=== PATIENT | female | born 1965 | race Caucasian/White ===

== ENCOUNTER 2018-02-15 11:21 | Emergency (ER) | payer MEDICAID, OTHER, SELFPAY ==
[2018-02-15] MEDS ORDERED: Adacel (T-DAP) 0.5 ML VIAL ONE (12:23)
[2018-02-15] MEDS ORDERED: Acetaminophen/Codeine 30-300mg Tablet ONE (12:23)
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
[2018-02-15 12:49] LABS: #Eosinphils 0.1 thou/uL (0.0-0.7); #Lymphocytes 1.1 thou/uL (1.20-3.40); #Monocytes 0.6 thou/uL (0.11-0.59); #Neutrophils 5.2 thou/uL (1.40-6.50); %Basophils 0.3 % (0.0-1.0); %Lymphocytes 15.3 % (21.0-51.0); %Neutrophils 75.4 % (42.0-75.0); Hemoglobin 13.6 g/dL (12.0-16.0); Mean Corpuscular HGB CONC 34.1 g/dL (32.0-36.0); Mean Corpuscular Hemoglobin 30.9 pg (27.0-31.0); Mean Corpuscular Volume 90.6 fL (78.0-98.0); Mean Platelet Volume 6.7 fL (7.4-10.4); Platelet Count 271 thou/uL (130-400); RBC Distribution Width 11.1 % (11.5-14.5); Red Blood Cell (RBC) Count 4.39 mill/uL (4.20-5.40); White Blood Cell (WBC) Count 6.9 thou/uL (4.8-10.8)
[2018-02-15] MEDS ORDERED: ISOVUE-370 76%-LOCM 1 ML ONE (12:56)
[2018-02-15 13:02] LABS: BHCG - Serum Negative (NEGATIVE); Pregs Control Background? CLEAR/WHITE (CLR/WHITE); Pregs Control Bar Appear? YES (CONTROL BAR)
[2018-02-15 13:05] LABS: INR-International Normal Ratio 0.9; PTT 28.9 SEC (22.9-36.1); Prothrombin Time 12.4 SEC (12.0-14.7)
[2018-02-15 13:17] LABS: ALT (SGPT) 11 U/L (8-55); AST (SGOT) 22 U/L (5-34); Alcohol Less than 10 mg/dL (Less than 10); Alkaline Phosphatase 65 U/L (40-150); Anion Gap 12 mmol/L (10-20); BUN (Urea Nitrogen) 18 mg/dL (9.8-20.1); Bilirubin, Total 0.6 mg/dL (0.2-1.2); Calc. Creatinine Clearance 0 mL/min (70-130); Calcium 9.1 mg/dL (7.8-10.44); Carbon Dioxide 25 mmol/L (22-29); Chloride 107 mmol/L (98-107); Estimated GFR-MDRD Greater than 90; Globulin 2.7 g/dL (2.4-3.5); Glucose 106 mg/dL (70-105); Lipase 16 U/L (8-78); Potassium 3.7 mmol/L (3.5-5.1); Protein, Total 6.7 g/dL (6.0-8.3); Sodium 140 mmol/L (136-145)
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
[2018-02-15 14:30] LABS: Bilirubin Negative (Negative); Blood, Urine Moderate (Negative); Clarity CLOUDY (Clear); Glucose, Urine (Dipstick) Negative (Negative); Leukocyte Small (Negative); Nitrite Positive (Negative); Protein, Urine (Dipstick) Negative (Neg-Trace); Specific Gravity, Urine 1.018 (1.002-1.036)
[2018-02-15 14:35] LABS: Bacteria/HPF 4+ HPF (None Seen); Hyaline Casts/LPF 0-3 HYALINE CAST LPF (0-3 Hyaline); RBC/HPF 21-50 HPF (0-3); Squamous Epithelial 0-3 HPF (0-3)
== END 2018-02-15 14:52 | disposition home or self-care (01) ==
LOC: ERS 11:21
DX: S30.810A Abrasion of lower back and pelvis, initial encounter (principal); S20.412A Abrasion of left back wall of thorax, initial encounter; G43.909 Migraine, unspecified, not intractable, without status migrainosus; J44.9 Chronic obstructive pulmonary disease, unspecified; F43.10 Post-traumatic stress disorder, unspecified; F41.9 Anxiety disorder, unspecified; F31.9 Bipolar disorder, unspecified; F17.210 Nicotine dependence, cigarettes, uncomplicated; Z79.899 Other long term (current) drug therapy; Y04.0XXA Assault by unarmed brawl or fight, initial encounter
CPT/HCPCS: 36415; 70450; 71260; 72125; 74177; 80053; 80307; 81003; 81015; 83605; 83690; 84703; 85025; 85610; 85730; 90471; 90715

== ENCOUNTER 2018-08-23 22:06 | Emergency (ER) | payer MEDICAID, OTHER ==
[~2018-08-23 22:06] MED LIST: ISOVUE-370 76%-LOCM 1 ML ONE
[2018-08-23 22:39] LABS: #Basophils 0.1 thou/uL (0.0-0.2); #Eosinphils 0.1 thou/uL (0.0-0.7); #Lymphocytes 1.6 thou/uL (1.20-3.40); #Monocytes 0.4 thou/uL (0.11-0.59); #Neutrophils 3.4 thou/uL (1.40-6.50); %Basophils 1.5 % (0.0-1.0); %Eosinophils 1.1 % (0.0-10.0); %Lymphocytes 28.6 % (21.0-51.0); %Monocytes 7.6 % (0.0-10.0); %Neutrophils 61.3 % (42.0-75.0); Hemoglobin 12.9 g/dL (12.0-16.0); Mean Corpuscular HGB CONC 33.1 g/dL (32.0-36.0); Mean Corpuscular Hemoglobin 31.3 pg (27.0-31.0); Mean Corpuscular Volume 94.6 fL (78.0-98.0); Mean Platelet Volume 6.5 fL (7.4-10.4); Platelet Count 268 thou/uL (130-400); RBC Distribution Width 11.7 % (11.5-14.5); White Blood Cell (WBC) Count 5.6 thou/uL (4.8-10.8)
[2018-08-23] MEDS ORDERED: Ondansetron PF 4 MG/2 ML Vial ONE (22:49)
[2018-08-23] MEDS ORDERED: Ketorolac Tromethamine 30 MG/ML VIAL ONE (22:49)
[2018-08-23 22:56] LABS: Bilirubin Negative (Negative); Blood, Urine Trace (Negative); Clarity CLEAR (Clear); Glucose, Urine (Dipstick) Negative (Negative); Leukocyte Negative (Negative); Nitrite Negative (Negative); Protein, Urine (Dipstick) Negative (Neg-Trace); Specific Gravity, Urine 1.009 (1.002-1.036); Urobilinogen 0.2 mg/dL (0.2-1.0)
[2018-08-23 22:57] LABS: Bacteria/HPF None Seen HPF (None Seen); Hyaline Casts/LPF 0-3 HYALINE CAST LPF (0-3 Hyaline); RBC/HPF 0-3 HPF (0-3); Squamous Epithelial 0-3 HPF (0-3); WBC/HPF None Seen HPF (0-3)
[2018-08-23 22:59] LABS: ALT (SGPT) 15 U/L (8-55); AST (SGOT) 17 U/L (5-34); Albumin 3.9 g/dL (3.5-5.0); Alkaline Phosphatase 74 U/L (40-150); Anion Gap 14 mmol/L (10-20); BUN (Urea Nitrogen) 16 mg/dL (9.8-20.1); Bilirubin, Total Less than 0.2 mg/dL (0.2-1.2); Calc. Creatinine Clearance 0 mL/min (70-130); Calcium 8.8 mg/dL (7.8-10.44); Carbon Dioxide 23 mmol/L (22-29); Chloride 109 mmol/L (98-107); Estimated GFR-MDRD Greater than 90; Globulin 2.4 g/dL (2.4-3.5); Glucose 123 mg/dL (70-105); Potassium 3.7 mmol/L (3.5-5.1); Protein, Total 6.3 g/dL (6.0-8.3); Sodium 142 mmol/L (136-145)
--- NOTE | 2018-08-23 23:08 | CT ---
CT ABDOMEN AND PELVIS: 08/23/2018 HISTORY: Abdominal pain and nausea. COMPARISON: 02/15/2018 TECHNIQUE: Axial CT imaging obtained at 5 mm intervals, from the lung bases through the pubic symphysis, with IV contrast. Coronal reformatted imaging obtained. FINDINGS: Midline sternotomy wires are present. The imaged lung bases demonstrate no acute findings. No free intraperitoneal air. There is a hypodense lesion in the left lobe of the liver, measuring 8-9 mm in AP dimension, unchange d when compared to the prior exam, too small to characterize. The gallbladder is decompressed. Nons pecific intrahepatic biliary dilatation is noted, left greater than right, stable when compared to th e prior exam. In addition, the common bile duct is dilated, measuring 1.2 cm in transverse dimension , also stable. The spleen, adrenal glands, and kidneys demonstrate no acute findings. No discrete p ancreatic mass lesion identified. Evaluation of the bowel is limited without oral contrast media. The appendix appears grossly unremarkable. No evidence for bowel or inflammatory change or obstructi on. Scattered atherosclerotic calcification of the abdominal aorta noted. Review of the osseous structures demonstrates no worrisome lytic or blastic bone lesion. There is mass-like enlargement of the uterine fundus, similar when compared to studies dating back to 02/25/2012. IMPRESSION: Stable nonspecific intrahepatic and extrahepatic biliary dilatation. Findings suggest a nonspecific biliary obstructive process. Correlation with laboratory analysis and consideration for follow-up ma gnetic resonance cholangiopancreatography or endoscope retrograde cholangiopancreatography advised. CODE T POS: [facility]
== END 2018-08-23 23:57 | disposition home or self-care (01) ==
LOC: ERS 22:06
DX: M54.5 Low back pain (principal); G43.909 Migraine, unspecified, not intractable, without status migrainosus; J44.9 Chronic obstructive pulmonary disease, unspecified; F17.210 Nicotine dependence, cigarettes, uncomplicated; F31.9 Bipolar disorder, unspecified; F41.9 Anxiety disorder, unspecified; F43.10 Post-traumatic stress disorder, unspecified; Z79.899 Other long term (current) drug therapy
CPT/HCPCS: 74177; 80053; 81003; 81015; 82274; 83605; 85025; 96361; 96372; 96374; 96375; J1885; J2405

== ENCOUNTER 2019-02-10 15:33 | Observation (INO) | payer OTHER ==
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
[2019-02-10] MEDS ORDERED: Ondansetron ODT 4 MG TAB ONE ×2 (18:09→18:12)
[2019-02-10] MEDS ORDERED: HYDROcodone/Acetaminophen 5/325 mg Tablet ONE (18:37)
[2019-02-10 18:49] LABS: #Eosinphils 0.1 thou/uL (0.0-0.7); #Lymphocytes 1.9 thou/uL (1.20-3.40); #Monocytes 0.6 thou/uL (0.11-0.59); #Neutrophils 4.9 thou/uL (1.40-6.50); %Basophils 0.4 % (0.0-1.0); %Eosinophils 1.3 % (0.0-10.0); %Lymphocytes 25.1 % (21.0-51.0); %Monocytes 8.1 % (0.0-10.0); %Neutrophils 65.1 % (42.0-75.0); Mean Corpuscular HGB CONC 32.7 g/dL (32.0-36.0); Mean Corpuscular Hemoglobin 29.8 pg (27.0-31.0); Mean Platelet Volume 7.1 fL (7.4-10.4); Platelet Count 247 thou/uL (130-400); RBC Distribution Width 11.3 % (11.5-14.5); Red Blood Cell (RBC) Count 4.35 mill/uL (4.20-5.40); White Blood Cell (WBC) Count 7.5 thou/uL (4.8-10.8)
[2019-02-10 19:18] LABS: ALT (SGPT) 10 U/L (8-55); AST (SGOT) 16 U/L (5-34); Albumin 3.8 g/dL (3.5-5.0); Alkaline Phosphatase 70 U/L (40-150); Anion Gap 10 mmol/L (10-20); BUN (Urea Nitrogen) 17 mg/dL (9.8-20.1); Bilirubin, Total Less than 0.2 mg/dL (0.2-1.2); Calc. Creatinine Clearance 0 mL/min (70-130); Calcium 8.6 mg/dL (7.8-10.44); Carbon Dioxide 25 mmol/L (22-29); Chloride 104 mmol/L (98-107); Estimated GFR-MDRD Greater than 90; Globulin 2.6 g/dL (2.4-3.5); Glucose 94 mg/dL (70-105); Potassium 3.4 mmol/L (3.5-5.1); Protein, Total 6.4 g/dL (6.0-8.3); Sodium 136 mmol/L (136-145)
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
[2019-02-10 21:34] VITALS: BMI 18.3
[2019-02-10] MEDS ORDERED: Senokot S 8.6-50 MG TAB PO PRN (21:44)
[2019-02-10] MEDS ORDERED: Ondansetron ODT 4 MG TAB PO PRN ×2 (21:44→23:21)
[2019-02-10] MEDS ORDERED: Acetaminophen 325 MG TAB PO PRN (21:44)
[2019-02-10] MEDS ORDERED: Calcium Carbonate 500 MG ChewTAB PO PRN (21:44)
[2019-02-10] MEDS: Piperacillin/Tazobactam 3.375 GM in Sodium Chloride 0.9% 100 ML IVPB SCH (22:42)
[2019-02-10] MEDS: Morphine 4 MG/ML VIAL SLOW IVP PRN (22:50)
[2019-02-10] MEDS ORDERED: Ibuprofen 600 MG TAB PO PRN (23:21)
[2019-02-10] MEDS ORDERED: Nicotine 7 MG PATCH TD SCH (23:59)
[2019-02-11] MEDS: Morphine 4 MG/ML VIAL SLOW IVP PRN ×4 (02:51→15:25)
[2019-02-11] MEDS: Piperacillin/Tazobactam 3.375 GM in Sodium Chloride 0.9% 100 ML IVPB SCH ×3 (04:31→17:35)
[2019-02-11] MEDS: Vancomycin HCl 1 GM in Premix Bag 1 BAG IVPB SCH ×2 (05:34→18:41)
[2019-02-11 05:55] LABS: #Eosinphils 0.1 thou/uL (0.0-0.7); #Lymphocytes 1.7 thou/uL (1.20-3.40); #Monocytes 0.6 thou/uL (0.11-0.59); #Neutrophils 4.3 thou/uL (1.40-6.50); %Basophils 0.4 % (0.0-1.0); %Eosinophils 1.6 % (0.0-10.0); %Lymphocytes 24.8 % (21.0-51.0); %Monocytes 9.1 % (0.0-10.0); Hemoglobin 12.5 g/dL (12.0-16.0); Mean Corpuscular HGB CONC 31.8 g/dL (32.0-36.0); Mean Corpuscular Hemoglobin 29.4 pg (27.0-31.0); Mean Corpuscular Volume 92.5 fL (78.0-98.0); Mean Platelet Volume 7.2 fL (7.4-10.4); Platelet Count 222 thou/uL (130-400); RBC Distribution Width 11.4 % (11.5-14.5); Red Blood Cell (RBC) Count 4.24 mill/uL (4.20-5.40); White Blood Cell (WBC) Count 6.8 thou/uL (4.8-10.8)
[2019-02-11 06:20] LABS: ALT (SGPT) 9 U/L (8-55); AST (SGOT) 14 U/L (5-34); Albumin 3.3 g/dL (3.5-5.0); Alkaline Phosphatase 63 U/L (40-150); Anion Gap 10 mmol/L (10-20); BUN (Urea Nitrogen) 14 mg/dL (9.8-20.1); Bilirubin, Total 0.2 mg/dL (0.2-1.2); Calc. Creatinine Clearance 99 mL/min (70-130); Calcium 8.2 mg/dL (7.8-10.44); Carbon Dioxide 24 mmol/L (22-29); Chloride 107 mmol/L (98-107); Estimated GFR-MDRD Greater than 90; Globulin 2.4 g/dL (2.4-3.5); Glucose 99 mg/dL (70-105); Potassium 3.9 mmol/L (3.5-5.1); Protein, Total 5.7 g/dL (6.0-8.3); Sodium 137 mmol/L (136-145)
[2019-02-11] MEDS ORDERED: Mometasone/Formoterol 120 PUFF INHALER INH SCH (06:30)
[2019-02-11] MEDS ORDERED: Ipratropium Bromide 2.5 ml Neb NEB SCH (06:30)
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
[2019-02-11] MEDS: Dicyclomine 20 MG TAB PO SCH ×3 (07:41→17:25)
--- NOTE | 2019-02-11 08:47 | CON ---
DATE OF CONSULTATION: DICTATED FOR: William Cage MD. HISTORY OF PRESENT ILLNESS: We were asked by [facility] to see the patient. The patient few weeks ago, cut her left index finger knuckle and did okay with self treatment for the first couple of weeks, but then a piece of aluminum or something heavy landed on it, and the symptoms got worse. She is not able to raise her finger up, and she has some pain over the knuckle. Dr. Cage looked at it last night and did not think it needed to be I and D, but definitely for infectious purposes, it does need to be cleared up before any surgical intervention needs to be undertaken. She will probably need that extensor tendon fixed and appropriately it should be done by hand surgeon. I spoke with the patient. I went over with Dr. Cage that last night, she understands. I think, reasonably she could go home on some dicloxacillin for a few weeks and then follow up with Hand Surgery. PAST MEDICAL HISTORY: Positive for neuropathy, seizure disorder, COPD, multiple miscarriages, some Tourette's, PTSD, anxiety, panic attacks, and bipolar. PAST SURGICAL HISTORY: ASD repair, bilateral knee, colon surgery, two D and Cs, elective , and tubal ligation. FAMILY HISTORY: Not contributory to this particular visit. SOCIAL HISTORY: Smokes for many years. Used alcohol in the past, so uses some illicit drugs. REVIEW OF SYSTEMS: Her current only complaint is that left knuckle pain. Otherwise, denies any chest pain, shortness of breath, bowel or bladder issues. Rest of review of systems negative. PHYSICAL EXAMINATION: GENERAL: Well-nourished female, resting in bed in room 4429 in no acute distress. Speech clear. Affect pleasant. Answers questions appropriately. She is alert and oriented x3. HEENT: Normal exam. Face symmetric. Tongue midline. Missing some teeth. NECK: Supple. Trachea midline. EXTREMITIES: Upper extremities, equal size, shape, symmetry. Normal bulk and tone with the exception of the left hand, which does have some inflammation over the left index knuckle area. It is mildly erythematous and with some mild warmth, but she is able to flex it okay, but she is unable to extend it. She has good sensations right now, but states there is a sensation of some numbness. ASSESSMENT: Wound to left knuckle. PLAN: It does appear to be inflamed and possible mild infection. She does have extensor tendon injury. Infection will need to be cleared up before any surgical intervention. Our thought is that she needs to see our hand surgeon after antibiotics in a few weeks to see if this could be repaired in a timely manner. The patient understands the plan. She is happy with it. she can eat right now. I have changed her diet in the computer and taken her n.p.o. status off. Job ID: [id number]
[2019-02-11] MEDS ORDERED: Non-Formulary Item 1 EACH (Budesonide-Formoterol [Symbicort 80-4.5] 2 PUFF) INH SCH (09:00)
[2019-02-11] MEDS ORDERED: Nicotine 7 MG PATCH TD SCH (09:00)
[2019-02-11] MEDS ORDERED: Vancomycin HCl 1 GM in Sodium Chloride 0.9% 250 ML 250 ML IVPB SCH (09:00)
[2019-02-11] MEDS ORDERED: Gabapentin 300 MG CAP PO SCH (09:00)
[2019-02-11] MEDS: Ketorolac Tromethamine 30 MG/ML VIAL IVP PRN ×2 (10:30→18:42)
[2019-02-11] MEDS: Methocarbamol 500 MG TAB PO PRN ×2 (10:30→18:43)
[2019-02-11 13:15] VITALS: BP 117/86; TEMP 98.1
--- NOTE | 2019-02-13 04:51 | DIS ---
DATE OF ADMISSION: 02/10/2019 DATE OF DISCHARGE: 02/11/2019 RESIDENT: Bouchra Kim DO ADMITTING PHYSICIAN: Jalen Sidhu MD DISCHARGE ATTENDING: Bo Quick MD. CONSULTS: 1. Ortho Surgery. 2. Hand Surgery. PROCEDURES: None. DIAGNOSES: 1. Hand cellulitis, extensor tendon tenosynovitis ruled out. 2. Extensor tendon laceration. 3. Chronic obstructive pulmonary disease. 4. Easy bruising. 5. Neuropathy. 6. Post-traumatic stress disorder. 7. Tobacco use disorder. 8. Polysubstance abuse disorder. 9. History of alcoholism. 10. History of seizures. 11. Anxiety. 12. Tourette syndrome. HISTORY OF PRESENT ILLNESS/HOSPITAL COURSE: Ms. Corrigan came to the emergency department because of pain of her left hand after scrapping metal previously that day. She felt as if a piece of metal might have fallen into the wound that occurred about 2 weeks ago over of her left metacarpophalangeal joint while sharpening a knife. She began to have severe pain in this left finger that is radiating up the arm, it became more swollen and red, which seemed to worsen throughout the evening. Dr. Cage, Ortho Surgery, was consulted who recommended that we start the patient on p.o. dicloxacillin. The patient to follow up with Hand Surgery in about 2 weeks ' time once the cellulitis is treated. Ortho stated that no intervention was necessary at this time, it is likely just overlying cellulitis and not true tenosynovitis. Decision for surgery will be decided upon at the followup appointment. The patient improved the next day after being on IV vanc, IV Zosyn and IV pain medications. She states that she was ready to go home and believes she would do fine taking the antibiotics, Ibuprofen, and Tylenol. DISPOSITION: Stable, will follow up out patient with hand surgery. DISCHARGE INSTRUCTIONS: 1. Location: To home. 2. Diet: Regular diet. 3. Activity: Ad-hazel or as tolerated. 4. Followup: Follow up with Hand Surgery in 2 week's time. Job ID: [id number] MTDD
== END 2019-02-11 19:19 | disposition home or self-care (01) ==
LOC: ERS 15:33 → T4-B 21:30
PROVIDERS: ADMIT Family Medicine; ATTEND Family Medicine
DX: L03.114 Cellulitis of left upper limb (principal); S66.321A Laceration of extensor muscle, fascia and tendon of left index finger at wrist and hand level, initial encounter; J44.9 Chronic obstructive pulmonary disease, unspecified; R23.3 Spontaneous ecchymoses; G62.9 Polyneuropathy, unspecified; F43.10 Post-traumatic stress disorder, unspecified; F17.210 Nicotine dependence, cigarettes, uncomplicated; F19.10 Other psychoactive substance abuse, uncomplicated; F10.21 Alcohol dependence, in remission; G40.909 Epilepsy, unspecified, not intractable, without status epilepticus; F41.0 Panic disorder [episodic paroxysmal anxiety]; F95.2 Tourette's disorder; F31.9 Bipolar disorder, unspecified; Z87.59 Personal history of other complications of pregnancy, childbirth and the puerperium; Z88.5 Allergy status to narcotic agent; Z88.8 Allergy status to other drugs, medicaments and biological substances; Z79.899 Other long term (current) drug therapy; W26.0XXA Contact with knife, initial encounter
CPT/HCPCS: 36415; 80053; 85025; 85652; 86140; 87040; 87070; 87077; 87186; 87205; 94640; 96365; 96366; 96367; 96375; 96376; G0378; J1885; J2270; J2543; J3370; J3490; Q0162

== ENCOUNTER 2019-05-08 21:18 | Emergency (ER) | payer OTHER | END 2019-05-08 23:44 | disposition home or self-care (01) | LOC: ERS 21:18 | DX: F10.20 Alcohol dependence, uncomplicated (principal); J44.9 Chronic obstructive pulmonary disease, unspecified; F43.10 Post-traumatic stress disorder, unspecified; F31.9 Bipolar disorder, unspecified; F17.210 Nicotine dependence, cigarettes, uncomplicated | CPT/HCPCS: 99284 ==

== ENCOUNTER 2019-05-13 13:18 | Emergency (ER) | payer OTHER ==
--- NOTE | 2019-05-13 14:13 | CT ---
CT head noncontrast HISTORY: Head injury. COMPARISON: 02/15/2018. FINDINGS: There is no evidence of acute intracranial hemorrhage or infarct. The ventricles appear nor mal in size, shape and position. There is no mass effect or shift of midline structures. Visualized paranasal sinuses remain well-aerated. IMPRESSION: No acute intracranial abnormalities are demonstrated.
[2019-05-13] MEDS ORDERED: Ketorolac Tromethamine 60 MG/2 ML VIAL ONE (14:26)
--- NOTE | 2019-05-13 14:26 | RAD ---
Radiograph right humerus 2 views: DATE: 05/13/2019 HISTORY: 54-year-old female with traumatic arm pain from fall FINDINGS: There is no fracture. IMPRESSION: Negative
--- NOTE | 2019-05-13 14:27 | RAD ---
Radiograph right shoulder 3 views: HISTORY: 54-year-old female status post acute trauma due to fall FINDINGS: No fracture or dislocation. IMPRESSION: No evidence of acute traumatic injury.
== END 2019-05-13 14:50 | disposition home or self-care (01) ==
LOC: SCSER 13:18
DX: S43.401A Unspecified sprain of right shoulder joint, initial encounter (principal); S00.93XA Contusion of unspecified part of head, initial encounter; J44.9 Chronic obstructive pulmonary disease, unspecified; F43.10 Post-traumatic stress disorder, unspecified; F31.9 Bipolar disorder, unspecified; F17.210 Nicotine dependence, cigarettes, uncomplicated; W19.XXXA Unspecified fall, initial encounter
CPT/HCPCS: 70450; 96372; J1885

== ENCOUNTER 2020-02-09 16:27 | Outpatient (CLI) | payer OTHER ==
--- NOTE | 2020-02-09 16:55 | RAD ---
Right foot 3 views HISTORY: Injury. FINDINGS: Lisfranc joint alignment is anatomic. Plantar arch is maintained. Joint space narrowing and osteophytosis are most pronounced at the first metatarsophalangeal joint. M ild osteophytosis. Left cheek prominent OsteoArthritic changes are present elsewhere throughout the foot. No acute fracture, dislocation, or aggressive osseous erosions. 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
--- NOTE | 2020-02-09 16:59 | RAD ---
Left wrist 3 views HISTORY: Injury. Pain. FINDINGS: Each view demonstrates an oblique lucency through the articular surface of the distal radiu s at the level of the scapholunate junction. Approximately 0.3 cm gap on the oblique view. No significant step-off. Distal ulna is intact. Partial union of the lunate and triquetrum is apparent. Mild osteoarthritic changes of the first carpometacarpal joint. IMPRESSION : Intra-articular fracture distal right radius. Please consider immobilization and urgent orthopedic ev aluation
--- NOTE | 2020-02-09 17:19 | RAD ---
EXAM: SACRUM AND COCCYX THREE VIEWS: 02/09/20 HISTORY: Injury from a fall with pain. FINDINGS: Minimal arthrosis changes of the SI joints bilaterally. No evidence for overt fracture. IMPRESSION: No convincing evidence for acute sacral or coccygeal fracture. Minimal generalized arthrosis and dege nerative change. If the patient has persistent or worsening pain referable to the sacrum and coccyx, consider follow-u p nonemergent MRI which may well demonstrate subtle insufficiency or stress type fractures of the sa chalo and coccyx which may not be evident on plain film or even CT. POS: [facility]
== END 2020-02-09 16:28 | disposition home or self-care (01) ==
LOC: BICRAD 16:27
PROVIDERS: ATTEND Family Medicine
DX: S89.92XA Unspecified injury of left lower leg, initial encounter (principal); S99.921A Unspecified injury of right foot, initial encounter; S30.0XXA Contusion of lower back and pelvis, initial encounter; W19.XXXA Unspecified fall, initial encounter; M47.818 Spondylosis without myelopathy or radiculopathy, sacral and sacrococcygeal region; S52.502A Unspecified fracture of the lower end of left radius, initial encounter for closed fracture; M18.11 Unilateral primary osteoarthritis of first carpometacarpal joint, right hand
CPT/HCPCS: 72220

== ENCOUNTER 2021-04-25 14:42 | Emergency (ER) | payer OTHER ==
[2021-04-25 15:39] LABS: #Basophils 0.1 thou/uL (0.0-0.2); #Eosinphils 0.1 thou/uL (0.0-0.7); #Lymphocytes 1.8 thou/uL (1.20-3.40); #Monocytes 0.4 thou/uL (0.11-0.59); #Neutrophils 1.7 thou/uL (1.40-6.50); %Basophils 1.4 % (0.0-1.0); %Eosinophils 3.2 % (0.0-10.0); %Lymphocytes 42.6 % (21.0-51.0); %Monocytes 10.3 % (0.0-10.0); %Neutrophils 42.5 % (42.0-75.0); Hemoglobin 12.5 g/dL (12.0-16.0); Mean Corpuscular HGB CONC 32.1 g/dL (32.0-36.0); Mean Corpuscular Hemoglobin 29.2 pg (27.0-31.0); Mean Corpuscular Volume 91.1 fL (78.0-98.0); Mean Platelet Volume 7.1 fL (7.4-10.4); Platelet Count 215 thou/uL (130-400); RBC Distribution Width 11.8 % (11.5-14.5); Red Blood Cell (RBC) Count 4.28 mill/uL (4.20-5.40); White Blood Cell (WBC) Count 4.1 thou/uL (4.8-10.8)
[2021-04-25 16:01] LABS: ALT (SGPT) 23 U/L (8-55); AST (SGOT) 32 U/L (5-34); Albumin 3.7 g/dL (3.5-5.0); Alkaline Phosphatase 82 U/L (40-110); Anion Gap 11 mmol/L (10-20); BUN (Urea Nitrogen) 17 mg/dL (9.8-20.1); Bilirubin, Total Less than 0.2 mg/dL (0.2-1.2); Calc. Creatinine Clearance 0 mL/min (70-130); Calcium 8.9 mg/dL (7.8-10.44); Carbon Dioxide 29 mmol/L (22-29); Chloride 101 mmol/L (98-107); Globulin 2.6 g/dL (2.4-3.5); Glucose 113 mg/dL (70-105); Lipase 25 U/L (8-78); Protein, Total 6.3 g/dL (6.0-8.3); Sodium 137 mmol/L (136-145)
[2021-04-25] MEDS ORDERED: Morphine 4 MG/ML VIAL ONE (16:22)
[2021-04-25] MEDS ORDERED: Acetaminophen 500 MG TAB ONE (16:23)
[2021-04-25] MEDS ORDERED: Ondansetron PF 4 MG/2 ML Vial ONE (16:23)
[2021-04-25] MEDS ORDERED: Ondansetron ODT 4 MG TAB ONE (16:39)
== END 2021-04-25 17:00 | disposition home or self-care (01) ==
LOC: ERS 14:42
DX: R10.32 Left lower quadrant pain (principal); J44.9 Chronic obstructive pulmonary disease, unspecified; F17.210 Nicotine dependence, cigarettes, uncomplicated; Z87.442 Personal history of urinary calculi; Z79.899 Other long term (current) drug therapy
CPT/HCPCS: 36415; 74176; 80053; 83690; 85025; 96372; J2270; J2405; Q0162

== ENCOUNTER 2021-04-30 21:06 | Emergency (ER) | payer OTHER ==
[2021-04-30 21:43] LABS: #Eosinphils 0.1 thou/uL (0.0-0.7); #Lymphocytes 1.9 thou/uL (1.20-3.40); #Monocytes 0.4 thou/uL (0.11-0.59); %Basophils 0.3 % (0.0-1.0); %Eosinophils 1.8 % (0.0-10.0); %Lymphocytes 35.2 % (21.0-51.0); %Monocytes 7.6 % (0.0-10.0); %Neutrophils 55.1 % (42.0-75.0); Hemoglobin 12.6 g/dL (12.0-16.0); Mean Corpuscular HGB CONC 32.1 g/dL (32.0-36.0); Mean Corpuscular Hemoglobin 29.4 pg (27.0-31.0); Mean Corpuscular Volume 91.5 fL (78.0-98.0); Platelet Count 237 thou/uL (130-400); RBC Distribution Width 11.5 % (11.5-14.5); Red Blood Cell (RBC) Count 4.28 mill/uL (4.20-5.40); White Blood Cell (WBC) Count 5.4 thou/uL (4.8-10.8)
[2021-04-30 21:53] LABS: Bilirubin Negative (Negative); Blood, Urine 2+ (Negative); Calcium Oxalate Crystals 4+ HPF (None Seen); Glucose, Urine (Dipstick) Normal (Negative); Ketone, Urine Trace mg/dL (Negative); Leukocyte 250 Leu/uL (Negative); Nitrite Negative (Negative); Protein, Urine (Dipstick) 50 mg/dL (Neg-Trace); RBC/HPF 21-50 HPF (0-3); Specific Gravity, Urine 1.038 (1.002-1.036)
[2021-04-30 21:54] LABS: Bacteria/HPF Rare-Few HPF (None Seen); Clarity Cloudy (Clear)
[2021-04-30 21:59] LABS: Anion Gap 11 mmol/L (10-20); BUN (Urea Nitrogen) 19 mg/dL (9.8-20.1); Calc. Creatinine Clearance 0 mL/min (70-130); Carbon Dioxide 32 mmol/L (22-29); Chloride 103 mmol/L (98-107); Glucose 99 mg/dL (70-105); Potassium 3.5 mmol/L (3.5-5.1); Sodium 142 mmol/L (136-145)
[2021-04-30] MEDS ORDERED: Ketorolac Tromethamine 30 MG/ML VIAL ONE (22:32)
== END 2021-04-30 23:17 | disposition home or self-care (01) ==
LOC: ERS 21:06
DX: N30.90 Cystitis, unspecified without hematuria (principal); D72.829 Elevated white blood cell count, unspecified; J44.9 Chronic obstructive pulmonary disease, unspecified; F17.210 Nicotine dependence, cigarettes, uncomplicated; Z79.899 Other long term (current) drug therapy
CPT/HCPCS: 36415; 74176; 80048; 81003; 81015; 85025; 96372; J1885

== ENCOUNTER 2021-07-23 14:18 | Outpatient (CLI) | payer OTHER | END 2021-07-23 14:19 | disposition home or self-care (01) | LOC: MRI 14:18 | PROVIDERS: ATTEND Student in an Organized Health Care Education/Training Program | DX: R60.0 Localized edema (principal); M25.462 Effusion, left knee; S83.242A Other tear of medial meniscus, current injury, left knee, initial encounter; M24.19 Other articular cartilage disorders, other specified site | CPT/HCPCS: 93970 ==

== ENCOUNTER 2021-08-21 12:45 | Emergency (ER) | payer OTHER ==
[2021-08-21 23:50] LABS: SARS-CoV-2 PCR by NAA Not Detected (NotDetected)
== END 2021-08-21 14:00 | disposition home or self-care (01) ==
LOC: ERS 12:45
DX: R51.9 Headache, unspecified (principal); R09.81 Nasal congestion; Z20.822 Contact with and (suspected) exposure to COVID-19; J44.9 Chronic obstructive pulmonary disease, unspecified; F17.210 Nicotine dependence, cigarettes, uncomplicated
CPT/HCPCS: 99284; U0003; U0005

== ENCOUNTER 2021-11-21 13:51 | Outpatient (CLI) | payer OTHER | END 2021-11-21 13:52 | disposition home or self-care (01) | LOC: BICRAD 13:51 | PROVIDERS: ATTEND Nurse Practitioner Family | DX: M54.50 Low back pain, unspecified (principal) | CPT/HCPCS: 72100 ==

== ENCOUNTER 2022-05-20 14:09 | Emergency (ER) | payer OTHER ==
[2022-05-20 15:07] LABS: #Lymphocytes 1.3 thou/uL (1.20-3.40); #Monocytes 0.4 thou/uL (0.11-0.59); #Neutrophils 5.5 thou/uL (1.40-6.50); %Basophils 0.4 % (0.0-1.0); %Eosinophils 0.6 % (0.0-10.0); %Lymphocytes 18.1 % (21.0-51.0); %Monocytes 5.7 % (0.0-10.0); %Neutrophils 75.2 % (42.0-75.0); Hemoglobin 13.6 g/dL (12.0-16.0); Mean Corpuscular HGB CONC 32.5 g/dL (32.0-36.0); Mean Corpuscular Hemoglobin 29.3 pg (27.0-31.0); Mean Corpuscular Volume 90.1 fL (78.0-98.0); Mean Platelet Volume 7.4 fL (7.4-10.4); Platelet Count 286 thou/uL (130-400); RBC Distribution Width 11.6 % (11.5-14.5); Red Blood Cell (RBC) Count 4.65 mill/uL (4.20-5.40); White Blood Cell (WBC) Count 7.4 thou/uL (4.8-10.8)
[2022-05-20] MEDS ORDERED: Ketorolac Tromethamine 30 MG/ML VIAL ONE (15:33)
[2022-05-20 15:38] LABS: ALT (SGPT) 12 U/L (8-55); AST (SGOT) 18 U/L (5-34); Albumin 4.3 g/dL (3.5-5.0); Alkaline Phosphatase 85 U/L (40-110); Anion Gap 11 mmol/L (10-20); BUN (Urea Nitrogen) 16 mg/dL (9.8-20.1); Bilirubin, Total 0.5 mg/dL (0.2-1.2); Calc. Creatinine Clearance 0 mL/min (70-130); Calcium 9.3 mg/dL (7.8-10.44); Carbon Dioxide 30 mmol/L (22-29); Chloride 102 mmol/L (98-107); Estimated GFR 96; Globulin 3.1 g/dL (2.4-3.5); Glucose 107 mg/dL (70-105); Potassium 3.2 mmol/L (3.5-5.1); Protein, Total 7.4 g/dL (6.0-8.3); Sodium 140 mmol/L (136-145)
[2022-05-20] MEDS ORDERED: Pot Chloride/Pot Bicarb/Cit Ac 25 mEq Effervescent Tablet ONE (16:08)
[2022-05-20 18:34] LABS: Bilirubin Negative (Negative); Blood, Urine Trace (Negative); Clarity Clear (Clear); Glucose, Urine (Dipstick) Normal (Negative); Ketone, Urine Negative (Negative); Leukocyte Negative Leu/uL (Negative); Nitrite Negative (Negative); Protein, Urine (Dipstick) 20 mg/dL (Neg-Trace); Specific Gravity, Urine 1.023 (1.002-1.036); Squamous Epithelial 0-3 HPF (0-3); Urobilinogen 3 mg/dL (Less than 2); WBC/HPF 0-3 HPF (0-3)
[2022-05-20 18:35] LABS: Bacteria/HPF 1+ HPF (None Seen)
== END 2022-05-20 18:22 | disposition home or self-care (01) ==
LOC: ERS 14:09
DX: S80.812A Abrasion, left lower leg, initial encounter (principal); L03.116 Cellulitis of left lower limb; J44.9 Chronic obstructive pulmonary disease, unspecified; F17.210 Nicotine dependence, cigarettes, uncomplicated; W01.0XXA Fall on same level from slipping, tripping and stumbling without subsequent striking against object, initial encounter
CPT/HCPCS: 36415; 80053; 81003; 81015; 83605; 85025; 87086; 96372; J1885

== ENCOUNTER 2022-09-19 15:37 | Emergency (ER) | payer OTHER ==
[2022-09-19 16:06] LABS: #Basophils 0.1 thou/uL (0.0-0.2); #Eosinphils 0.2 thou/uL (0.0-0.7); #Lymphocytes 1.5 thou/uL (1.20-3.40); #Monocytes 0.3 thou/uL (0.11-0.59); #Neutrophils 2.9 thou/uL (1.40-6.50); %Basophils 1.1 % (0.0-1.0); %Eosinophils 3.1 % (0.0-10.0); %Lymphocytes 30.8 % (21.0-51.0); %Monocytes 6.8 % (0.0-10.0); %Neutrophils 58.3 % (42.0-75.0); Hemoglobin 15.1 g/dL (12.0-16.0); Mean Corpuscular HGB CONC 32.8 g/dL (32.0-36.0); Mean Corpuscular Hemoglobin 29.8 pg (27.0-31.0); Mean Platelet Volume 7.1 fL (7.4-10.4); Platelet Count 312 10x3/uL (130-400); Red Blood Cell (RBC) Count 5.07 mill/uL (4.20-5.40); White Blood Cell (WBC) Count 4.9 10x3/uL (4.8-10.8)
[2022-09-19 16:30] LABS: ALT (SGPT) 11 U/L (8-55); AST (SGOT) 18 U/L (5-34); Albumin 4.1 g/dL (3.5-5.0); Alkaline Phosphatase 78 U/L (40-110); Anion Gap 12 mmol/L (10-20); BUN (Urea Nitrogen) 11 mg/dL (9.8-20.1); Bilirubin, Total 0.3 mg/dL (0.2-1.2); Calc. Creatinine Clearance 0 mL/min (70-130); Calcium 9.3 mg/dL (7.8-10.44); Carbon Dioxide 29 mmol/L (22-29); Chloride 103 mmol/L (98-107); Estimated GFR 102; Globulin 3.4 g/dL (2.4-3.5); Glucose 102 mg/dL (70-105); Potassium 4.4 mmol/L (3.5-5.1); Protein, Total 7.5 g/dL (6.0-8.3); Sodium 140 mmol/L (136-145)
[2022-09-19] MEDS ORDERED: Ipratropium/Albuterol 3 ML NEB ONE (17:15)
[2022-09-19] MEDS ORDERED: predniSONE 20 MG TAB ONE (17:25)
== END 2022-09-19 17:52 | disposition home or self-care (01) ==
LOC: ERS 15:37
DX: J44.1 Chronic obstructive pulmonary disease with (acute) exacerbation (principal); F17.210 Nicotine dependence, cigarettes, uncomplicated
CPT/HCPCS: 36415; 71046; 80053; 85025; 93005; 94640; J7512; J7620

== ENCOUNTER 2022-09-27 16:42 | Observation (INO) | payer OTHER ==
[2022-09-27 17:34] LABS: #Eosinphils 0.1 thou/uL (0.0-0.7); #Lymphocytes 1.2 thou/uL (1.20-3.40); #Monocytes 0.9 thou/uL (0.11-0.59); #Neutrophils 7.5 thou/uL (1.40-6.50); %Basophils 0.2 % (0.0-1.0); %Eosinophils 1.1 % (0.0-10.0); %Monocytes 9.4 % (0.0-10.0); %Neutrophils 77.4 % (42.0-75.0); Hemoglobin 13.5 g/dL (12.0-16.0); Mean Corpuscular Hemoglobin 31.1 pg (27.0-31.0); Mean Corpuscular Volume 91.6 fl (78.0-98.0); Mean Platelet Volume 7.1 fL (7.4-10.4); Platelet Count 294 10x3/uL (130-400); RBC Distribution Width 11.5 % (11.5-14.5); Red Blood Cell (RBC) Count 4.35 mill/uL (4.20-5.40); White Blood Cell (WBC) Count 9.6 10x3/uL (4.8-10.8)
[2022-09-27] MEDS ORDERED: Dexamethasone 10 MG/ML VIAL ONE (17:40)
[2022-09-27] MEDS ORDERED: Ipratropium Bromide 2.5 ml Neb ONE (17:40)
[2022-09-27] MEDS ORDERED: Vancomycin 1 GM/200 ML (FROZEN) BAG ONE (17:40)
[2022-09-27] MEDS ORDERED: Cefepime 2 GM VIAL ONE (17:40)
[2022-09-27 17:47] LABS: INR-International Normal Ratio 0.9; Prothrombin Time 12.2 sec (12.0-14.7)
[2022-09-27 17:48] LABS: PTT 27.9 sec (22.9-36.1)
[2022-09-27 17:58] LABS: ALT (SGPT) 10 U/L (8-55); AST (SGOT) 17 U/L (5-34); Albumin 3.6 g/dL (3.5-5.0); Alkaline Phosphatase 75 U/L (40-110); Anion Gap 15 mmol/L (10-20); BUN (Urea Nitrogen) 9 mg/dL (9.8-20.1); Bilirubin, Total 0.2 mg/dL (0.2-1.2); Calc. Creatinine Clearance 0 mL/min (70-130); Carbon Dioxide 27 mmol/L (22-29); Chloride 97 mmol/L (98-107); Estimated GFR 106; Globulin 3.5 g/dL (2.4-3.5); Glucose 120 mg/dL (70-105); Potassium 3.6 mmol/L (3.5-5.1); Protein, Total 7.1 g/dL (6.0-8.3); Sodium 135 mmol/L (136-145)
[2022-09-27 18:51] LABS: Bacteria/HPF None Seen HPF (None Seen); Bilirubin Negative (Negative); Blood, Urine 1+ (Negative); Clarity Clear (Clear); Glucose, Urine (Dipstick) Normal (Negative); Ketone, Urine Negative (Negative); Leukocyte 25 Leu/uL (Negative); Nitrite Negative (Negative); Protein, Urine (Dipstick) Negative (Neg-Trace); Specific Gravity, Urine 1.012 (1.002-1.036); Squamous Epithelial 0-3 HPF (0-3); Urobilinogen Normal mg/dL (Less than 2); WBC/HPF 0-3 HPF (0-3)
[2022-09-27] MEDS ORDERED: HYDROcodone/Acetaminophen 5/325 mg Tablet ONE (19:36)
[2022-09-27] MEDS ORDERED: Acetaminophen 500 MG TAB ONE ×2 (19:37→19:38)
[2022-09-27] MEDS ORDERED: Calcium Carbonate 500 MG ChewTAB PO PRN (19:42)
[2022-09-27] MEDS ORDERED: Ondansetron PF 4 MG/2 ML Vial IVP PRN (19:42)
[2022-09-27] MEDS ORDERED: Senokot S 8.6-50 MG TAB PO PRN (19:42)
[2022-09-27] MEDS ORDERED: Ondansetron ODT 4 MG TAB PO PRN (19:42)
[2022-09-27] MEDS ORDERED: Methocarbamol 500 MG TAB PO PRN (19:52)
[2022-09-27 20:34] LABS: Magnesium 1.7 mg/dL (1.6-2.6)
[2022-09-27] MEDS ORDERED: Magnesium 2 GM/50 ML(in water) 2 GM in Premix Bag 1 BAG IVPB SCH (20:45)
[2022-09-27] MEDS ORDERED: Gabapentin 300 MG CAP PO SCH (21:00)
[2022-09-27 21:02] LABS: Amphetamine Detected (NotDetected); Barbiturates Screen Not Detected (NotDetected); Benzodiazepine Screen Detected (NotDetected); Cocaine Metabolite Screen Detected (NotDetected); Methadone Not Detected (NotDetected); Methamphetamine Detected (NotDetected); Opiate Screen Not Detected (NotDetected); Oxycodone Screen Not Detected (NotDetected); Phencyclidine (PCP) Not Detected (NotDetected); THC/Cannabinoid Screen Not Detected (NotDetected); Tricyclic Screen Not Detected (NotDetected)
[2022-09-27 21:03] LABS: Legionella Urinary Ag Negative (Negative)
[2022-09-27 21:04] LABS: Strep pneumo Urine Ag NEGATIVE (NEGATIVE)
[2022-09-27 21:32] LABS: SARS-CoV-2 NAA Rapid Test Not Detected (NotDetected)
[2022-09-27 22:15] VITALS: BMI 20.7
[2022-09-27] MEDS: Potassium Chloride 20 MEQ TAB PO SCH (23:00)
[2022-09-28] MEDS: Nicotine 14 MG PATCH TD SCH ×2 (00:15→21:04)
[2022-09-28] MEDS: Ipratropium/Albuterol 3 ML NEB NEB SCH ×7 (01:38→22:15)
[2022-09-28 05:54] LABS: #Lymphocytes 0.5 thou/uL (1.20-3.40); #Monocytes 0.3 thou/uL (0.11-0.59); #Neutrophils 5.4 thou/uL (1.40-6.50); %Eosinophils 0.1 % (0.0-10.0); %Lymphocytes 7.3 % (21.0-51.0); %Monocytes 4.6 % (0.0-10.0); %Neutrophils 87.9 % (42.0-75.0); Hemoglobin 12.6 g/dL (12.0-16.0); Mean Corpuscular HGB CONC 32.4 g/dL (32.0-36.0); Mean Corpuscular Hemoglobin 29.8 pg (27.0-31.0); Mean Corpuscular Volume 92.1 fl (78.0-98.0); Mean Platelet Volume 7.3 fL (7.4-10.4); Platelet Count 266 10x3/uL (130-400); RBC Distribution Width 11.7 % (11.5-14.5); Red Blood Cell (RBC) Count 4.24 mill/uL (4.20-5.40); White Blood Cell (WBC) Count 6.1 10x3/uL (4.8-10.8)
[2022-09-28 06:07] LABS: Anion Gap 13 mmol/L (10-20); BUN (Urea Nitrogen) 9 mg/dL (9.8-20.1); Calc. Creatinine Clearance 121 mL/min (70-130); Calcium 8.8 mg/dL (7.8-10.44); Carbon Dioxide 22 mmol/L (22-29); Chloride 106 mmol/L (98-107); Estimated GFR 109; Glucose 204 mg/dL (70-105); Magnesium 2.2 mg/dL (1.6-2.6); Potassium 3.6 mmol/L (3.5-5.1); Sodium 137 mmol/L (136-145)
[2022-09-28] MEDS: Cefepime 2 GM in Sodium Chloride 0.9% 100 ML IVPB SCH ×2 (06:08→17:32)
[2022-09-28] MEDS: HYDROcodone/Acetaminophen 5/325 mg Tablet PO PRN ×2 (06:18→11:42)
[2022-09-28] MEDS: Mometasone 200 MCG/Formoterol 5 MCG 120 PUFF INHALER INH SCH ×2 (06:34→18:23)
[2022-09-28] MEDS ORDERED: VANCOMYCIN 1.25 GM/250 ML BAG 1.25 GM in Premix Bag 1 BAG IVPB SCH (07:00)
[2022-09-28] MEDS ORDERED: Ondansetron ODT 4 MG TAB PO PRN (09:24)
[2022-09-28] MEDS ORDERED: Methocarbamol 500 MG TAB PO PRN (09:24)
[2022-09-28] MEDS ORDERED: Ipratropium/Albuterol 3 ML NEB NEB PRN (10:04)
[2022-09-28] MEDS: Buprenorphine HCl 2 MG SL TAB SL SCH ×2 (16:33→21:04)
[2022-09-28] MEDS: VANCOMYCIN 1.25 GM/250 ML BAG 1.25 GM in Premix Bag 1 BAG IVPB SCH (18:37)
[2022-09-28] MEDS: Potassium Chloride 20 MEQ TAB PO SCH (18:48)
[2022-09-28] MEDS ORDERED: Gabapentin 400 MG CAP PO SCH ×2 (21:00)
[2022-09-28] MEDS ORDERED: Non-Formulary Item 1 EACH (Fluticasone Propion/Salmeterol [Advair Diskus 250/50] 1 EACH B IH SCH (21:00)
[2022-09-29] MEDS: Acetaminophen 325 MG TAB PO PRN ×2 (01:56→05:43)
[2022-09-29] MEDS: Ipratropium/Albuterol 3 ML NEB NEB SCH ×4 (02:35→14:21)
[2022-09-29 05:22] LABS: #Lymphocytes 1.2 thou/uL (1.20-3.40); #Monocytes 0.6 thou/uL (0.11-0.59); #Neutrophils 9.1 thou/uL (1.40-6.50); %Eosinophils 0.2 % (0.0-10.0); %Lymphocytes 10.6 % (21.0-51.0); %Monocytes 5.4 % (0.0-10.0); %Neutrophils 83.8 % (42.0-75.0); Hemoglobin 11.7 g/dL (12.0-16.0); Mean Corpuscular HGB CONC 32.2 g/dL (32.0-36.0); Mean Corpuscular Hemoglobin 29.6 pg (27.0-31.0); Mean Corpuscular Volume 91.8 fl (78.0-98.0); Platelet Count 278 10x3/uL (130-400); RBC Distribution Width 11.5 % (11.5-14.5); Red Blood Cell (RBC) Count 3.95 mill/uL (4.20-5.40); White Blood Cell (WBC) Count 10.9 10x3/uL (4.8-10.8)
[2022-09-29] MEDS: Cefepime 2 GM in Sodium Chloride 0.9% 100 ML IVPB SCH (05:35)
[2022-09-29 05:42] LABS: Anion Gap 11 mmol/L (10-20); BUN (Urea Nitrogen) 12 mg/dL (9.8-20.1); Calc. Creatinine Clearance 126 mL/min (70-130); Calcium 8.9 mg/dL (7.8-10.44); Carbon Dioxide 25 mmol/L (22-29); Chloride 105 mmol/L (98-107); Estimated GFR 110; Glucose 193 mg/dL (70-105); Potassium 3.5 mmol/L (3.5-5.1); Sodium 137 mmol/L (136-145); Vancomycin, Trough 6.2 ug/mL
[2022-09-29] MEDS: VANCOMYCIN 1.25 GM/250 ML BAG 1.25 GM in Premix Bag 1 BAG IVPB SCH (06:28)
[2022-09-29] MEDS: Mometasone 200 MCG/Formoterol 5 MCG 120 PUFF INHALER INH SCH (06:29)
[2022-09-29] MEDS ORDERED: Non-Formulary Item 1 EACH (Tiotropium Bromide 4 GM Inhaler) IH SCH (09:00)
[2022-09-29] MEDS: Buprenorphine HCl 2 MG SL TAB SL SCH ×2 (10:13→16:14)
[2022-09-29] MEDS ORDERED: Fluconazole 100 MG TAB PO SCH (12:00)
[2022-09-29 12:04] VITALS: BP 124/69; TEMP 97.8
[2022-09-29] MEDS ORDERED: VANCOMYCIN 1.25 GM/250 ML BAG 1.25 GM in Premix Bag 1 BAG IVPB SCH (14:00)
== END 2022-09-29 16:28 | disposition home or self-care (01) ==
LOC: ERS 16:42 → 2SW 19:05
PROVIDERS: ADMIT Family Medicine; ATTEND Family Medicine
DX: A41.9 Sepsis, unspecified organism (principal); J18.9 Pneumonia, unspecified organism; J44.1 Chronic obstructive pulmonary disease with (acute) exacerbation; F17.210 Nicotine dependence, cigarettes, uncomplicated; F15.10 Other stimulant abuse, uncomplicated; F14.10 Cocaine abuse, uncomplicated; M19.90 Unspecified osteoarthritis, unspecified site; Z79.899 Other long term (current) drug therapy; Z88.5 Allergy status to narcotic agent; Z88.8 Allergy status to other drugs, medicaments and biological substances; Z20.822 Contact with and (suspected) exposure to COVID-19
CPT/HCPCS: 36415; 71045; 80048; 80053; 80202; 80306; 81003; 81015; 83605; 83690; 83735; 83880; 84145; 84484; 85025; 85610; 85730; 87040; 87081; 87086; 87449; 87899; 93005; 94640; 96365; 96366; 96367; 96372; 96375; 96376; G0378; J0571; J0692; J1100; J1650; J3370; J3370-JW; J3475; J3490; J7611; J7620; Q0162

== ENCOUNTER 2023-07-08 09:20 | Outpatient (CLI) | payer OTHER | END 2023-07-08 09:21 | disposition home or self-care (01) | LOC: BICCT 09:20 | PROVIDERS: ATTEND Nurse Practitioner Family | DX: M54.50 Low back pain, unspecified (principal); M25.551 Pain in right hip; M47.816 Spondylosis without myelopathy or radiculopathy, lumbar region; M47.817 Spondylosis without myelopathy or radiculopathy, lumbosacral region; Z91.81 History of falling | CPT/HCPCS: 72131; 72192 ==

== ENCOUNTER 2023-11-26 10:54 | Outpatient (CLI) | payer OTHER | END 2023-11-26 10:55 | disposition home or self-care (01) | LOC: BICRAD 10:54 | PROVIDERS: ATTEND Nurse Practitioner Family | DX: J44.1 Chronic obstructive pulmonary disease with (acute) exacerbation (principal); R05.9 Cough, unspecified; R09.89 Other specified symptoms and signs involving the circulatory and respiratory systems | CPT/HCPCS: 71046; 81001; 87635 ==

== ENCOUNTER 2025-04-06 09:36 | Outpatient (CLI) | payer OTHER | END 2025-04-06 09:37 | disposition home or self-care (01) | LOC: SCSRAD 09:36 | PROVIDERS: ATTEND Family Medicine | DX: S99.922A Unspecified injury of left foot, initial encounter (principal) ==